=== PATIENT | male | born 1955 | race Caucasian/White ===

== ENCOUNTER 2017-03-19 21:39 | Emergency (ER) | payer SELFPAY ==
[2017-03-19] MEDS ORDERED: SODIUM CHLORIDE 0.9% 1000 ML SOL IV ONE (22:12)
[2017-03-19 22:21] VITALS: RESP 18; TEMP 98.6
[2017-03-19 22:23] LABS: BASOPHILS % (AUTO) 0 % (0-3); EOSINOPHILS % (AUTO) 1 % (0-9); HEMATOCRIT 32 % (39-53); MEAN CORPUSCULAR HGB CONC 35.7 gm/dl (32.0-36.0); MEAN CORPUSCULAR VOLUME 86 fL (80-100); MONOCYTES % (AUTO) 8.2 % (0-12)
[2017-03-19 22:36] LABS: APPEARANCE,URINE Clear; BILIRUBIN,URINE NEGATIVE (NEGATIVE); COLOR,URINE Yellow; GLUCOSE, URINE (UA) NEGATIVE (NEGATIVE); KETONES,URINE NEGATIVE (NEGATIVE); LEUKOCYTE ESTERASE ,URINE NEGATIVE (NEGATIVE); NITRATE,URINE NEGATIVE (NEGATIVE); OCCULT BLOOD,URINE 1+ (NEG-TRACE); UROBILINOGEN,URINE 0.2 (0.2-1.0 EU)
[2017-03-19 22:49] LABS: ALBUMIN 2.3 gm/dl (3.4-5.0); POTASSIUM 4.4 mMol/L (3.5-5.1); THYROID STIMULATING HORMONE 2.311 uIU/ml (0.358-3.740)
[2017-03-19 22:52] LABS: RBC,URINE 0-1 (0-3AV/HPF); WBC,URINE NEGATIVE (0-5AV/HPF)
[2017-03-19 23:45] VITALS: O2SAT 96
[2017-03-19 23:46] VITALS: BP 132/76; PULSE 96
== END 2017-03-19 23:40 | disposition home or self-care (01) | DRG 812 ==
LOC: ED 21:39
DX: D64.9 Anemia, unspecified (principal); R63.4 Abnormal weight loss
CPT/HCPCS: 36415; 71010; 80053; 81001; 84443; 85025; 93005; 99285